=== PATIENT | female | born 1940 | race African-American/Black ===

== ENCOUNTER 2019-01-31 11:50 | Emergency (ER) | payer MEDICARE, MEDICAID ==
[~2019-01-31] VITALS: Ht 165.1 cm; Wt 79.0 kg
[~2019-01-31 11:50] MED LIST: BP MEDS
[2019-01-31] MEDS ORDERED: MORPHINE SULFATE 4 MG/ML CPJ (NOT FOR IM USE) IV STA (13:28)
[2019-01-31] MEDS ORDERED: ACETAMINOPHEN 325MG TABLET PO ONE (14:30)
[2019-01-31 17:00] VITALS: BP 126/88
== END 2019-01-31 17:30 | disposition home or self-care (01) ==
LOC: ER 11:50
DX: S52.532A Colles' fracture of left radius, initial encounter for closed fracture (principal); M19.90 Unspecified osteoarthritis, unspecified site; I10 Essential (primary) hypertension; I48.91 Unspecified atrial fibrillation; W01.0XXA Fall on same level from slipping, tripping and stumbling without subsequent striking against object, initial encounter; Y93.89 Activity, other specified; Y92.89 Other specified places as the place of occurrence of the external cause; Y99.8 Other external cause status
CPT/HCPCS: 29125; 73100; 96374; 99283; J2270

== ENCOUNTER 2020-10-28 13:20 | Emergency (ER) | payer MEDICARE, MEDICAID ==
[~2020-10-28] VITALS: Ht 170.2 cm; Wt 66.0 kg
[2020-10-28 13:44] VITALS: BP 129/94
[2020-10-28 16:50] LABS: BASOPHILS % 0.4 % (0.0-2.0); HEMATOCRIT. 44.1 % (36.0-48.0); HEMOGLOBIN. 14.4 g/dL (12.0-16.0); LYMPHOCYTES % 16.3 % (20.0-50.0); MEAN CORPUSCULAR HEMOGLOBIN 26.7 pg (28.0-32.0); MEAN CORPUSCULAR VOLUME 81.9 fL (81.0-99.0); MEAN PLATELET VOLUME 8.1 fl (7.4-10.4); MONOCYTES % 5.1 % (2.0-8.0); NEUTROPHILS % 76.2 % (40.0-76.0); PLATELET 229 x1000/uL (130-400); RED BLOOD CELL COUNT 5.38 mill/uL (4.2-5.4); RED CELL DISTRIBUTION WIDTH 15.3 % (11.6-14.6)
[2020-10-28 16:52] LABS: CLARITY URINE CLEAR (CLEAR); COLOR URINE YELLOW (YELLOW); KETONES URINE TRACE (NEGATIVE); LEUKOCYTE ESTERASE URINE TRACE (NEGATIVE); NITRITE URINE NEGATIVE (NEGATIVE); OCCULT BLOOD URINE 1+ (NEGATIVE); PROTEIN URINE NEGATIVE (NEGATIVE); SPECIFIC GRAVITY URINE 1.019 (1.005-1.030); UROBILINOGEN URINE 0.2 E.U./dL (0.2-1.0)
[2020-10-28 16:54] LABS: CHLORIDE 101 mEq/L (98-107)
[2020-10-28 16:58] LABS: INR 1.3; PROTHROMBIN TIME 13.5 sec (9.6-11.0)
[2020-10-28] MEDS ORDERED: MAGN296S70 MT (17:21)
== END 2020-10-28 17:32 | disposition home or self-care (01) ==
LOC: ER 14:15
DX: K59.00 Constipation, unspecified (principal); R31.29 Other microscopic hematuria; I48.91 Unspecified atrial fibrillation; I10 Essential (primary) hypertension; Z98.890 Other specified postprocedural states
CPT/HCPCS: 36415; 80053; 81003; 85025; 86850; 86900; 99283

== ENCOUNTER 2021-10-25 14:49 | Emergency (ER) | payer MEDICARE, MEDICAID ==
[~2021-10-25] VITALS: Ht 170.2 cm; Wt 69.0 kg
[~2021-10-25 14:49] MED LIST changes: +MAGN296S70 MT
[2021-10-25] MEDS ORDERED: CLIN-194 MT (18:18)
[2021-10-25] MEDS ORDERED: TOPUD MT (18:18)
[2021-10-25] MEDS ORDERED: ACETAMINOPHEN 325MG TABLET PO ONE (18:30)
[2021-10-25 19:43] VITALS: BP 129/85
== END 2021-10-25 19:46 | disposition home or self-care (01) ==
LOC: ER 15:31
DX: M25.511 Pain in right shoulder (principal); K08.89 Other specified disorders of teeth and supporting structures; I48.91 Unspecified atrial fibrillation; I10 Essential (primary) hypertension; Z79.899 Other long term (current) drug therapy
CPT/HCPCS: 73030; 99283